=== PATIENT | female | born 1955 | race Two or more races ===

== ENCOUNTER 2020-06-06 06:59 | Outpatient (REF) | payer OTHER, SELFPAY | END 2020-06-06 07:00 | disposition home or self-care (01) | LOC: HO.LAB 06:59 | PROVIDERS: PCP Internal Medicine; Visit Provider Internal Medicine | DX: Z20.828 Contact with and (suspected) exposure to other viral communicable diseases (principal) | CPT/HCPCS: C9803; U0003 ==

== ENCOUNTER 2020-07-10 16:01 | Outpatient (REF) | payer OTHER, SELFPAY ==
--- NOTE | 2020-07-10 | MM_ITS ---
EXAMINATION: MM SCREENING DIGITAL BREAST TOMOSYNTHESIS, BILATERAL CLINICAL INFORMATION: Screening. Asymptomatic. The lifetime risk of breast cancer based on the Tyrer-Cuzick Model is 4%. COMPARISON: Mammography: 03/08/2019 (baseline). TECHNIQUE: Digital breast tomosynthesis is performed in both the craniocaudal and mediolateral oblique views along with computer-aided detection (CAD). Synthesized 2D images are generated from the tomosynthesis. FINDINGS: There are scattered areas of fibroglandular density (ACR BI-RADS breast composition Category b). Parenchymal pattern is similar to prior studies. Scattered parenchymal densities and benign round and coarse calcifications are similar to the baseline study. There is no interval mass or architectural abnormality or abnormal calcifications. The axilla and skin contours are unremarkable. MM/MM tomosynthesis screening BI IMPRESSION: No mammographic evidence of malignancy. ASSESSMENT: BI-RADS 2: Benign RECOMMENDATION: Routine annual mammography screening. This patient's information was entered into a reminder system with a target due date for their next mammogram.
== END 2020-07-10 16:02 | disposition home or self-care (01) ==
LOC: HO.MAMMO 16:01
PROVIDERS: PCP Internal Medicine; Visit Provider Internal Medicine
DX: Z12.31 Encounter for screening mammogram for malignant neoplasm of breast (principal)
CPT/HCPCS: 77063; 77067

== ENCOUNTER 2020-09-27 16:00 | Outpatient (REF) | payer OTHER, SELFPAY ==
[2020-09-27 18:04] LABS: Thyroid Stimulating Hormone 0.95 uIU/mL (0.32-4.0); Vitamin D 25-OH Total 49.9 ng/mL (>30)
== END 2020-09-27 16:01 | disposition home or self-care (01) ==
LOC: HO.LAB 16:00
PROVIDERS: PCP Internal Medicine; Visit Provider Internal Medicine
DX: E04.2 Nontoxic multinodular goiter (principal); I10 Essential (primary) hypertension; E55.9 Vitamin D deficiency, unspecified; Z79.899 Other long term (current) drug therapy
CPT/HCPCS: 36415; 82306; 84439; 84443

== ENCOUNTER 2020-10-25 15:37 | Outpatient (REF) | payer OTHER, SELFPAY ==
--- NOTE | ~2020-10-25 | US_ITS ---
EXAMINATION: US THYROID CLINICAL INFORMATION: Nontoxic multinodular goiter. COMPARISON: Ultrasound soft tissue head/neck thyroid dated 11/18/2018 TECHNIQUE: Linear transducer barr-scale and color Doppler examination with attention to the region of the thyroid. FINDINGS: SIZE: Measurements of the thyroid lobes and nodules are given in sagittal, anteroposterior and transverse dimensions respectively. Right Thyroid Lobe: 4.4 x 1.8 x 1.3 cm, volume 5.4 mL. Previously 4.2 x 1.4 x 1.3 cm, volume 4.1 mL. Parenchyma: The gland echotexture is homogeneous. Thyroid vascularity is normal. Left Thyroid Lobe: 4.1 x 1.5 x 1.4 cm, volume 4.5 mL. Previously 4.4 x 1.5 x 1.3 cm, volume 4.5 mL. Parenchyma: The gland echotexture is homogeneous. Thyroid vascularity is normal. Isthmus: 0.2 cm in maximum AP dimension. Previously 0.3 cm. No focal thyroid nodule is seen. There are several anechoic cysts seen. NODES: No lymphadenopathy is seen in the tissue surrounding the thyroid gland. US/US thyroid IMPRESSION: Several anechoic cysts seen. No solid nodule noted. The thyroid gland is unremarkable. ACR TI-RADS RECOMMENDATION REFERENCE: Ultrasound-guided fine-needle aspiration, followup ultrasound, no further followup. * TR1 (0 point) and TR 2 (2 points): No FNA or followup. * TR3 (3 points): FNA if more than or equal to 2.5 cm in maximum dimension, followup ultrasound in 1, 3 and 5 years if 1.5 to 2.4 cm in maximum dimension. * TR4 (4-6 points): FNA if more than or equal to 1.5 cm in maximum dimension, followup ultrasound in 1, 2, 3 and 5 years if 1 to 1.4 cm in maximum dimension. * TR5 (more than or equal to 7 points): FNA if more than or equal to 1 cm in maximum dimension, followup ultrasound every year for 5 years if 0.5 to 0.9 cm in maximum dimension. * TR3, TR4 or TR5 nodules that are below the size threshold for followup receive no followup.
== END 2020-10-25 15:38 | disposition home or self-care (01) ==
LOC: HO.US 15:37
PROVIDERS: Visit Provider Internal Medicine
DX: E04.2 Nontoxic multinodular goiter (principal)
CPT/HCPCS: 76536

== ENCOUNTER → 2021-01-09 08:12 | Outpatient (BNVA) | payer OTHER, SELFPAY | PROVIDERS: Visit Provider Internal Medicine ==

== ENCOUNTER 2021-10-11 15:36 | Outpatient (REF) | payer OTHER, SELFPAY ==
--- NOTE | ~2021-10-11 | MM_ITS ---
EXAMINATION: MM SCREENING DIGITAL BREAST TOMOSYNTHESIS, BILATERAL CLINICAL INFORMATION: Screening. Asymptomatic. The lifetime risk of breast cancer based on the Tyrer-Cuzick Model is 6%. COMPARISON: Mammography: 07/10/2020, 03/08/2019 (baseline) TECHNIQUE: Digital breast tomosynthesis is performed in both the craniocaudal and mediolateral oblique views along with computer-aided detection (CAD). Synthesized 2D images are generated from the tomosynthesis. FINDINGS: There are scattered areas of fibroglandular density (ACR BI-RADS breast composition Category b). There are no significant masses, abnormal calcifications, or other abnormalities. Parenchymal pattern is similar to prior studies. The axilla and skin contours are unremarkable. No significant changes. MM/MM tomosynthesis screening BI IMPRESSION: No mammographic evidence of malignancy. ASSESSMENT: BI-RADS 2: Benign RECOMMENDATION: Routine annual mammography screening. This patient's information was entered into a reminder system with a target due date for their next mammogram.
== END 2021-10-11 15:37 | disposition home or self-care (01) ==
LOC: HO.MAMMO 15:36
PROVIDERS: PCP Internal Medicine; Visit Provider Internal Medicine
DX: Z12.31 Encounter for screening mammogram for malignant neoplasm of breast (principal)
CPT/HCPCS: 77063; 77067

== ENCOUNTER 2022-11-12 15:40 | Outpatient (REF) | payer OTHER, SELFPAY ==
--- NOTE | ~2022-11-12 | MM_ITS ---
EXAMINATION: MM SCREENING DIGITAL BREAST TOMOSYNTHESIS, BILATERAL CLINICAL INFORMATION: Screening. Asymptomatic. The lifetime risk of breast cancer based on the Tyrer-Cuzick Model is 6%. COMPARISON: Mammography: 10/11/2021, 07/10/2020, 03/08/2019 TECHNIQUE: Digital breast tomosynthesis is performed in both the craniocaudal and mediolateral oblique views along with computer-aided detection (CAD). Synthesized 2D images are generated from the tomosynthesis. FINDINGS: There are scattered areas of fibroglandular density (ACR BI-RADS breast composition Category b). There are no significant masses, abnormal calcifications, or other abnormalities. Parenchymal pattern is similar to prior studies. There is no developing density or architectural abnormality. Again, there is a bulky benign calcified nodule central 9:00 right breast mid duct consistent with degenerated fibroadenoma. There are other scattered benign round and dermal calcifications. The axilla and skin contours are unremarkable. No significant changes. MM/MM tomosynthesis screening BI IMPRESSION: No mammographic evidence of malignancy. ASSESSMENT: BI-RADS 2: Benign RECOMMENDATION: Routine annual mammography screening. This patient's information was entered into a reminder system with a target due date for their next mammogram.
== END 2022-11-12 15:41 | disposition home or self-care (01) ==
LOC: HO.MAMMO 15:40
PROVIDERS: PCP Internal Medicine; Visit Provider Internal Medicine
DX: Z12.31 Encounter for screening mammogram for malignant neoplasm of breast (principal)
CPT/HCPCS: 77063; 77067

== ENCOUNTER 2022-12-29 19:35 | Outpatient (REF) | payer OTHER, SELFPAY | END 2022-12-29 19:36 | disposition home or self-care (01) | LOC: HO.HHCLNP 19:35 | PROVIDERS: Visit Provider Internal Medicine | DX: U07.1 COVID-19 (principal) | CPT/HCPCS: 87070; 87205 ==

== ENCOUNTER 2023-03-20 08:13 | Outpatient (REF) | payer OTHER, SELFPAY | END 2023-03-20 08:14 | disposition home or self-care (01) | LOC: HO.HHCL 08:13 | PROVIDERS: Visit Provider Internal Medicine | DX: I10 Essential (primary) hypertension (principal) | CPT/HCPCS: 36415; 80048 ==

== ENCOUNTER 2023-07-06 08:15 | Outpatient (REF) | payer OTHER, SELFPAY ==
[2023-07-06 11:43] LABS: Basophils Percent Auto 0.9 % (0-2); Eosinophils Absolute Auto 0.1 X10*3/uL (0.0-0.4); Eosinophils Percent Auto 2.3 % (0-4); Hematocrit 38.6 % (37.0-47.0); Hemoglobin 12.7 g/dl (12.0-16.0); Lymphocytes Absolute Auto 2.8 X10*3/uL (1.2-4.9); Lymphocytes Percent Auto 63.5 % (20-40); MANUAL DIFF FLAG SCAN; Mean Corpuscular HGB Conc 32.9 g/dl (31.0-35.0); Mean Corpuscular Hemoglobin 26.9 pg (27.0-33.0); Mean Corpuscular Volume 81.8 fL (80.0-98.0); Mean Platelet Volume 9.7 fL (9.4-12.3); Monocytes Absolute Auto 0.4 X10*3/uL (0.1-1.2); Monocytes Percent Auto 9.6 % (2-11); Neutrophils Percent Auto 23.7 % (45-73); Platelet Count 266 X10*3/uL (160-400); Red Blood Count 4.72 X10*6/uL (4.20-5.50); Red Cell Distribution Width 12.9 % (11.0-16.0); SCAN SMEAR FLAG 1; White Blood Count 4.4 X10*3/uL (4.8-10.8)
[2023-07-06 11:52] LABS: Estimated Average Glucose 108 mg/dL; Hemoglobin A1c % 5.4 % (<6.0)
[2023-07-06 12:11] LABS: Alanine Aminotransferase 22 U/L (0-31); Albumin Level 4.1 g/dL (3.5-5.0); Alkaline Phosphatase 112 U/L (39-117); Anion Gap 12 (12-20); Aspartate Amino Transferase 24 U/L (5-31); Bilirubin Direct 0.2 mg/dL (0.0-0.5); Bilirubin Total 0.5 mg/dL (0.0-1.0); Blood Urea Nitrogen 17 mg/dL (9-16); Calcium 9.7 mg/dL (8.4-10.2); Carbon Dioxide 28 mmol/L (22-29); Chloride 107 mmol/L (96-108); Cholesterol 117 mg/dL (<200); Estimated Glomerular Filt Rate 58; Glucose Random 92 mg/dL (60-115); HDL Cholesterol 44 mg/dL (>40); LDL Cholesterol Calculated 58 mg/dL (<100); Potassium 4.6 mmol/L (3.3-5.1); Sodium 142 mmol/L (135-145); Triglycerides 79 mg/dL (<150)
[2023-07-06 12:47] LABS: SLIDE REVIEW VERIFIED
== END 2023-07-06 08:16 | disposition home or self-care (01) ==
LOC: HO.HHCL 08:15
PROVIDERS: Visit Provider Internal Medicine
DX: R73.03 Prediabetes (principal); I10 Essential (primary) hypertension
CPT/HCPCS: 36415; 80048; 80061; 80076; 83036; 85025

== ENCOUNTER 2023-12-28 08:17 | Outpatient (REF) | payer OTHER, SELFPAY ==
[2023-12-28 11:55] LABS: Anion Gap 13 (12-20); Blood Urea Nitrogen 14 mg/dL (9-16); Calcium 9.9 mg/dL (8.4-10.2); Carbon Dioxide 27 mmol/L (22-29); Chloride 108 mmol/L (96-108); Estimated Glomerular Filt Rate 51; Glucose Random 92 mg/dL (60-115); Potassium 4.8 mmol/L (3.3-5.1); Sodium 143 mmol/L (135-145)
== END 2023-12-28 08:18 | disposition home or self-care (01) ==
LOC: HO.CHCLDS 08:17
PROVIDERS: Visit Provider Internal Medicine
DX: I10 Essential (primary) hypertension (principal)
CPT/HCPCS: 36415; 80048

== ENCOUNTER 2024-01-11 15:07 | Outpatient (REF) | payer OTHER, SELFPAY ==
--- NOTE | ~2024-01-11 | MM_ITS ---
EXAMINATION: MM SCREENING DIGITAL BREAST TOMOSYNTHESIS, BILATERAL CLINICAL INFORMATION: Screening. Asymptomatic. COMPARISON: Mammography: This study is compared with prior exams dating back to 2020. TECHNIQUE: Digital breast tomosynthesis is performed in both the craniocaudal and mediolateral oblique views along with computer-aided detection (CAD). Synthesized 2D images are generated from the tomosynthesis. FINDINGS: There are scattered areas of fibroglandular density (ACR BI-RADS breast composition Category b). There are no significant masses, abnormal calcifications, or other abnormalities. There is a coarse benign calcification upper outer quadrant of the right breast technology sales representative of an involuting fibroadenoma. MM/MM tomosynthesis screening BI IMPRESSION: No mammographic evidence of malignancy. ASSESSMENT: BI-RADS BI-RADS 2 - Benign Findings RECOMMENDATION: Routine annual mammography screening. 1 year F/U This examination should not preclude the clinical evaluation of a suspicious palpable abnormality. This patient's information was entered into a reminder system with a target due date for their next mammogram.
== END 2024-01-11 15:08 | disposition home or self-care (01) ==
LOC: HO.MAMMO 15:07
PROVIDERS: PCP Internal Medicine; Visit Provider Internal Medicine
DX: Z12.31 Encounter for screening mammogram for malignant neoplasm of breast (principal)
CPT/HCPCS: 77063; 77067

== ENCOUNTER → 2024-01-11 15:15 | Outpatient (BNV) | payer OTHER, SELFPAY | PROVIDERS: PCP Internal Medicine; Visit Provider Radiology Diagnostic Radiology | DX: Z12.31 Encounter for screening mammogram for malignant neoplasm of breast (principal) | CPT/HCPCS: 77063; 77067 ==

== ENCOUNTER 2024-04-04 16:11 | Outpatient (REF) | payer OTHER, SELFPAY ==
[2024-04-04 17:31] LABS: Appearance Urine Clear; Color Urine Yellow; Glucose Urine UA Negative (Negative); Leukocyte Esterase Urine Large (3+) (Negative); Nitrite Urine Negative (Negative); UMIC TRIGGER UA YES; Urine Blood Negative (Negative); Urine Ketones Negative (Negative); Urine Protein Negative (Neg-Trace)
[2024-04-04 17:35] LABS: Bacteria Urine 1+ (None Seen); Hyaline Casts Urine 0-2 /LPF (0-2); RBC Urine 0-2 /HPF (0-2); WBC Urine 21-50 /HPF (0-5)
[2024-04-04 18:03] LABS: Creatinine Urine 74.53 mg/dL; Protein/Creatinine Ratio, Ur 0.11 (<0.2); Total Protein Urine Random 8 mg/dL (<12)
== END 2024-04-04 16:12 | disposition home or self-care (01) ==
LOC: HO.HHCLNP 16:11
PROVIDERS: Visit Provider Internal Medicine Nephrology
DX: Z13.89 Encounter for screening for other disorder (principal)
CPT/HCPCS: 81001; 82570; 84156

== ENCOUNTER 2024-10-13 08:16 | Outpatient (REF) | payer OTHER, SELFPAY ==
--- OUTSIDE RECORDS SUMMARY | 2024-10-13 08:28 | XMS_ITS | Clinical Summary ---
Author Organization [employer] Address [address] [facility] 7[address] [place] [address] Care Team Providers Care [employer] Leak Tester Name Role Phone Nubia Gay MD Primary Care Provide r Allergies No known active allergies Medications fluticasone (Flonase Allergy Relief) 50 MCG/ACT nasal sprayIndications :Allergic sinusitis Administer 1 spray into each nostril in the morning. Shake gently. Before first use, prime pump. After use, clean tip and replace cap. 16 g 12 3 Active albuterol 108 (90 Base) MCG/ACT inhalerIndicatio ns:Influenza-lik e symptoms INHALE 2 PUFFS BY MOUTH EVERY 4 HOURS NEEDED FOR WHEEZING OR SHORTNESS OF BREATH 18 g 1 3 Active Blood Glucose Monitoring Suppl (FreeStyle Lite) deviceIndication s:Prediabetes TEST BLOOD SUGAR TWICE DAILY 1 each 3 Active glucose blood (FREESTYLE LITE) test strip TEST BLOOD SUGAR TWICE DAILY 100 each 11 3 Active TRUEplus Lancets 33G misc TEST BLOOD SUGAR TWICE DAILY 100 each 11 3 Active meclizine (Antivert) 12.5 MG tabletIndication s:Hypertension, unspecified type TAKE 1 TABLET BY MOUTH THREE TIMES DAILY NEEDED FOR DIZZINESS OR FOR NAUSEA 30 tablet 4 Active acetaminophen (Tylenol) 500 MG tablet Take 2 tablets (1,000 mg) by mouth every 6 (six) hours if needed for moderate pain or fever for up to 25 doses. 50 tablet 4 Active albuterol (2.5 MG/3ML) 0.083% nebulizer solutionIndicati ons:Mild intermittent asthma with acute exacerbation inhale 3 milliliter by nebulization route 4 times every day prn 75 mL 3 4 Active amLODIPine (Norvasc) 2.5 MG tabletIndication s:Hypertension, unspecified type Take 1 tablet (2.5 mg) by mouth in the morning. 90 tablet 1 4 Active atorvastatin (Lipitor) 20 MG tabletIndication s:Primary hypertension Take 1 tablet (20 mg) by mouth Once per day. 30 tablet 11 4 025 Active losartan (Cozaar) 25 MG tabletIndication s:Hypertension, unspecified type TAKE 1 TABLET BY MOUTH EVERY DAY 90 tablet 1 5 Active Active Problems Problem Noted Date Diagnosed Date Colon cancer screening 07/10/2023 Prediabetes 04/06/2023 Assessment & Plan (07/10/2023 10:15 AM EST): Today extensive discussion was done about life style modifications I advise healthy diet (low calorie) and cardiovascular exercise Assessment & Plan (04/06/2023 3:20 PM EDT): Today extensive discussion was done about life style modifications I advise healthy diet (low calorie) and cardiovascular exercise Stage 2 chronic kidney disease 04/06/2023 Assessment & Plan (04/06/2023 3:23 PM EDT): I explain to patient her kidney function is only mildly reduce and to protect her kidney she is doing the right things, weight reduction, blood pressure control, low Na diet, avoid NSAIDs and nephrotoxic medications, drink plenty of water and go to nephrology appointment for check up COVID-19 12/29/2022 Assessment & Plan (12/29/2022 12:08 PM EDT): Today is her 4th day of sxs and are currently very mild and improving. She had 1 booster. No need for antiviral PO at this time, re consult prn if she develops fever or worsening of sxs again. Self-care measures: Rest (sleep at least 8 hours a night). Hydrate with plenty of water (avoid caffeine and alcohol). Use saline nose drops to loosen mucus Take Acetaminophen (Tylenol??)or Ibuprofen as needed to reduce fever or discomfort Gargle with salt water and use throat sprays/lozenges for throat pain. Use heated, humidified air. If you do not have a humidifier, take hot showers. Limit spread to others: Wash hands frequently. Cover coughs and sneezes using the crook of your elbow. If you have a fever, stay home and away from others (self isolation) until fever-free for 72 hours (temperature should be less than 100??F without medication). Use Flonase daily x 1w + Tylenol prn fever, malaise, FIELDS Out of work until tomorrow, can go back on 12/31 if asymptomatic + wear a face mask for 5 more days, otherwise, will have to wait To complete 10d. Primary hypertension 11/03/2022 Assessment & Plan (01/07/2024 4:39 PM EDT): Maintenance: BMP: up to date Lipid Panel: up to date ASCVD Risk: high risk patient on atorvastatin 20mg daily - Aerobic exercise to reduce BP. Initial goal of 30 min walk 3-5x/week. Increase as tolerated. - low-sodium diet (goal: <2g/day) and heart healthy diet such as DASH to reduce BP and prevent ASCVD. - Home BP monitoring 1-2 x day with goal of <140/90. - Seek immediate medical attention for chest pain, palpitations, SOB, syncope, or sudden changes in mental status. - Do not change or discontinue current prescriptions without first consulting health care provider Assessment & Plan (07/10/2023 10:15 AM EST): Maintenance: BMP: up to date Lipid Panel: up to date ASCVD Risk:on atorvastatin 20mg daily - Aerobic exercise to reduce BP. Initial goal of 30 min walk 3-5x/week. Increase as tolerated. - low-sodium diet (goal: <2g/day) and heart healthy diet such as DASH to reduce BP and prevent ASCVD. - Home BP monitoring 1-2 x day with goal of <140/90. - Seek immediate medical attention for chest pain, palpitations, SOB, syncope, or sudden changes in mental status. - Do not change or discontinue current prescriptions without first consulting health care provider Assessment & Plan (04/06/2023 3:20 PM EDT): - Aerobic exercise to reduce BP. Initial goal of 30 min walk 3-5x/week. Increase as tolerated. - low-sodium diet (goal: <2g/day) and heart healthy diet such as DASH to reduce BP and prevent ASCVD. - Home BP monitoring 1-2 x day with goal of <140/90. - Seek immediate medical attention for chest pain, palpitations, SOB, syncope, or sudden changes in mental status. - Do not change or discontinue current prescriptions without first consulting health care provider Assessment & Plan (11/03/2022 4:38 PM EDT): - Aerobic exercise to reduce BP. Initial goal of 30 min walk 3-5x/week. Increase as tolerated. - low-sodium diet (goal: <2g/day) and heart healthy diet such as DASH to reduce BP and prevent ASCVD. - Home BP monitoring 1-2 x day with goal of <140/90. - Seek immediate medical attention for chest pain, palpitations, SOB, syncope, or sudden changes in mental status. - Do not change or discontinue current prescriptions without first consulting health care provider BPPV (benign paroxysmal positional vertigo) 10/14 Mild intermittent asthma 06/27/2022 Assessment & Plan (04/06/2023 3:19 PM EDT): Refill for albuterol done Assessment & Plan (12/29/2022 12:05 PM EDT): Improving, Use albuterol with spacer q4h x 2d then prn. Re consult prn if sxs worsen Assessment & Plan (11/03/2022 4:39 PM EDT): Controlled continue with current interventions Immunizations Name Administration Dates Next Due Influenza Quadrivalent Adjuvanted 03/03/2021,08/2019 Influenza injectable quadriv alent preservative free 07/10/2023,03/22/2018 Moderna Covid-19 Vaccine 12+ 12/10/2021,09/19/19 21,08/21/2020 Pneumococcal Conjugate PCV 20 11/03/2022 Pneumococcal Polysaccharide PPSV23 08/11/2019 Social History Tobacco Use Types Packs/Day Years Used Date Smoking Tobacco: Never Passive Smoke Exposure: Never Smokeless Tobacco: Never Tobacco Cessation:Counseling Given: Not Answered Depression Answer Date Recorded Patient Health Questionnaire-9 Score 0 01/07/2024 Patient Health Questionnaire-9 Score 0 01/07/2024 Last PHQ-9: Questionnaire Data Not on file 0 01/07/2024 Housing Stability Answer Date Recorded What is your housing situation today? I have roseline reich 01/07/[address] you li ve. Do you have problems with any of the following? None of the above 01/07/2024 Food Insecurity Answer Date Recorded Within the past 12 months, y ou worried that your food would run out before you got money to buy more: Never True 01/07/2024 Within the past 12 months,th e food you bought just didn't last and you didn't have enough money to get more: Never True Transportation Answer Date Recorded In the past 12 months, has l ack of transportation kept you from medical appts, meetings, work or from getting things needed for daily living? No 01/07/2024 Utilities Answer Date Recorded In the past 12 months, has t he electric, gas, oil or water company threatened to shut off services in your home? No 01/07/2024 Depression Answer Date Recorded Patient Health Questionnaire-2 Score 0 01/07/2024 Internet Access Answer Date Recorded Internet Access Q1 No 02/15/2024 Internet Access Q2 I do not want or need it 07/2023 Comments Unknown Sex and Gender Information Value Date Recorded Sex Assigned at Female 04/14/2022 10:35 AM EDT Legal Sex Female 10:35 AM EDT Gender Identity Female 04/14/2022 10:35 AM EDT Sexual Orientation Straight 04/14/2022 10 :35 AM EDT Last Filed Vital Signs Vital Sign Reading Time Taken Comments Blood Pressure 152/82 01/07/2024 3:31 PM EDT Pulse 67 01/07/2024 3:13 PM EDT Temperature 36.1 ??C (97 ??F) 01/07/2024 3:13 PM EDT Respiratory Rate 18 01/07/2024 3:13 PM EDT Oxygen Saturation 100% 01/07/2024 3:13 PM EDT Inhaled Oxygen Concentration - - Weight 74.1 kg (163 lb 6.4 oz) 01/07/2024 3:13 P M EDT Height 172.7 cm (5' 8 ) 01/07/2024 3:13 PM EDT Body Mass Index 24.84 01/07/2024 3:13 PM EDT Plan of Treatment Health Maintenance Due Date Last Done Comments CT Colonography 1954 Colonoscopy 1954 FIT 1954 FOBT 1954 Sigmoidoscopy 1954 Alcohol/Substance Use Screening 1966 Hepatitis C Screening 1972 DTaP/Tdap/Td Vaccines (1 - Tdap) 1973 Zoster Vaccines (1 of 2) 2004 RSV Patients and Patients Aged 60 years or older (1 - Risk 60-74 years 1-dose series) 2014 COVID-19 Vaccine ( - season) 2024 12/10/2021, 09/18/2020, 08/21/2020 Influenza Vaccine (#1) 2024 , 03/03/2021, 03/17/2020, Additional history exists Diabetes: Hemoglobin A1C 07/06/2024 024, 11/17/2022, 12/10/2021 Depression Screening 01/06/2025 01/07/2024, 01/07/20 24 SDOH Screening 01/06/2025 01/07/2024 Tobacco Screening 01/06/2025 01/07/2024 Mammogram 01/10/2025 01/11/2024, 05/3 06/2022, 11/12/2022, Additional history exists Colorectal Cancer Screening 11/25/2025 FIT DNA/Cologuard 11/25/2025 11/25/2022 Lipid Panel 07/06/2028 07/06/2023, 06/0 10/2022, 12/10/2021, Additional history exists Pneumococcal Vaccine: 50+ Years Completed 11/03/2022, 08/11/2019 HIB Vaccines Aged Out No longer eligi ble based on patient's age to complete this topic HPV Vaccines Aged Out No longer eligi ble based on patient's age to complete this topic Hepatitis A Vaccines Aged Out No long er eligible based on patient's age to complete this topic Hepatitis B Vaccines Aged Out No long er eligible based on patient's age to complete this topic IPV Vaccines Aged Out No longer eligi ble based on patient's age to complete this topic Meningococcal Vaccine Aged Out No janet belkys eligible based on patient's age to complete this topic RSV under 20 months Aged Out No longe r eligible based on patient's age to complete this topic Rotavirus Vaccines Aged Out No longer eligible based on patient's age to complete this topic Procedures Procedure Name Priority Date/Time Associated Diagnosis Comments BI MAMMOGRAM SCREENING TOMOSYNTHESIS BILATERAL Routine 01/11/2024 3:50 PM EDT HEMOGLOBIN A1C Routine 07/06/2023 8:18 AM EST Prediabetes Hypertension, unspecified type LIPID PANEL, STANDARD Routine 07/06/2023 8:18 AM EST Prediabetes Hypertension, unspecified type from Last 3 Months or Most Recently Relevant to Health Maintenance Results * BI Mammogram Screening Tomosynthesis Bilateral (01/11/2024 3:50 PM EDT) Anatomical Region Laterality Modality Breast Bilateral Mammography 01/11/2024 3:50 PM EDT Narrative 01/26/2024 9:39 PM EDT ? [facility] ? [address] ?[place] [address] ? Mammography Report ? Signed ? Patient: Mccann,Sonali ?MR#: [id number] ?? [id number] ? : 1955 ?Acct:[id number] ? Age/Sex: 68 / F ?ADM Date: 07/29/24 ? Loc: HO.MAMMO ? Attending Dr: Nubia Fuentes MD ? Ordering Physician: Nubia Gay MD ?Results: ?? 2Benign Findings ? Date of Service: 01/11/24 ?Follow Up: 1 Year From Orig ?? inal Mammogram ? Procedure(s): MM tomosynthesis screening BI ?? Accession Number(s): [id number] ? cc: Nubia Gay MD ? EXAMINATION: ?? MM SCREENING DIGITAL BREAST TOMOSYNTHESIS, BILATERAL ? CLINICAL INFORMATION: ? Screening. Asymptomatic. ? COMPARISON: ?? Mammography: This study is compared with prior exams dating back to ?? 2020. ? TECHNIQUE: ?? Digital breast tomosynthesis is performed in both the craniocaudal and ?? mediolateral oblique views along with computer-aided detection (CAD). ?? Synthesized 2D images are generated from the tomosynthesis. ? FINDINGS: ?? There are scattered areas of fibroglandular density (ACR BI-RADS breast ?? composition Category b). ? There are no significant masses, abnormal calcifications, or other ?? abnormalities. ? There is a coarse benign calcification upper outer quadrant of the ?? right breast business banking representative of an involuting fibroadenoma. ? MM/MM tomosynthesis screening BI ?? IMPRESSION: ?? No mammographic evidence of malignancy. ? ASSESSMENT: ? BI-RADS BI-RADS 2 - Benign Findings ? RECOMMENDATION: ?? Routine annual mammography screening. ? 1 year F/U ? This examination should not preclude the clinical evaluation of a ?? suspicious palpable abnormality. ? This patient's information was entered into a reminder system with a ?? target due date for their next mammogram. ? Dictated By: ?Alexa Buckley MD ? Signed By: ?<Electronically signed by Alexa Buckley MD in OV> ? 01/26/242134 ? DD/ 1550 ? TD/TT: ? Wire Frame Dipper: ? Procedure Note Donotuseinterpreter, Image - 01/26/2024 [facility] [address] [place] [address] Mammography Report Signed Patient: Sonali MccannMR#: [id number] : 1955cct:[id number] Age/Sex: 68 / FADM Date: 01/11/24 Loc: HO.MAMMO Attending Dr: Nubia Fuentes MD Ordering Physician: Nubia Gay MDResults: 2Benign Findings Date of Service: 01/11/24Follow Up: 1 Year From Orig inal Mammogram Procedure(s): MM tomosynthesis screening BI Accession Number(s): [id number] cc: Nubia Gay MD EXAMINATION: MM SCREENING DIGITAL BREAST TOMOSYNTHESIS, BILATERAL CLINICAL INFORMATION: Screening. Asymptomatic. COMPARISON: Mammography: This study is compared with prior exams dating back to 2020. TECHNIQUE: Digital breast tomosynthesis is performed in both the craniocaudal and mediolateral oblique views along with computer-aided detection (CAD). Synthesized 2D images are generated from the tomosynthesis. FINDINGS: There are scattered areas of fibroglandular density (ACR BI-RADS breast composition Category b). There are no significant masses, abnormal calcifications, or other abnormalities. There is a coarse benign calcification upper outer quadrant of the right breast business banking representative of an involuting fibroadenoma. MM/MM tomosynthesis screening BI IMPRESSION: No mammographic evidence of malignancy. ASSESSMENT: BI-RADS BI-RADS 2 - Benign Findings RECOMMENDATION: Routine annual mammography screening. 1 year F/U This examination should not preclude the clinical evaluation of a suspicious palpable abnormality. This patient's information was entered into a reminder system with a target due date for their next mammogram. Dictated By: Alexa Buckley MD Signed By: <Electronically signed by Alexa Buckley MD in OV> 01/26/24 2135 DD/ 1550 TD/TT: Wire Frame Dipper: us Nubia Fuentes MD IMG BI PROCEDURES Jon latonia Result - Final * Hemoglobin A1c (07/06/2023 8:18 AM EST) Hemoglobin A1c 5.4 <6.0 % [facility] Comment:Hemoglobin A1C Refer ence Range Adults: 4.8 - 6.0 % Non diabetic: < 6.0 % Goal: < 7.0 %Additional Action Suggested: > 8.0 %Note: Hemoglobin A1c results are invalid for patients with abnormal amounts of HbF. Blood transfusions may impact the HbA1c concentration in the patient sample. Estimated Average Glucose 108 mg/dL [facility] Comment:eAG = Estimated ave rage glucose which is %A1C expressed asaverage glucose, using the formula of the [id number] Glucose study (ADAG), Diabetes Care, Vol.31,#8,Jan. 2007 Blood Venous blood specimen / Unknown 07/06/2023 8:18 AM EST 07/06/2023 11:09 AM EST us Nubia Fuentes MD LAB BLOOD ORDERABLES Final Result [facility] [address] [place], [place] [id number] [phone] * Lipid Panel, Standard (07/06/2023 8:18 AM EST) Triglycerides 79 <150 mg/dL [facility] Comment:Desirable Triglyceri de: less than 150 mg/dLBorderline High Triglyceride 150-199 mg/dLHigh Triglyceride: 200-499 mg/dLVery High Triglyceride: greater than or equal to 5OO mg/dL Cholesterol 117 <200 mg/dL [facility] Comment:Desirable Cholestero l: less than 200 mg/dLBorderline High Cholesterol: 200-239 mg/dLHigh Cholesterol: greater than 239 mg/dL LDL Cholesterol Calculated 58 <100 mg/dL [facility] Comment:Desirable LDL: less than 100 mg/dLNear Optimal/Above Optimal LDL: 110- 129 mg/dLBorderline High LDL: 130-159 mg/dLHigh LDL: 160-189 mg/dLVery High LDL: greater than or equal to 190 mg/dL HDL Cholesterol 44 >40 mg/dL [facility] Comment:Desirable HDL: great er than 40 mg/dL Note: This HDL assay may give artificially low results in patients with liver disease. Blood Venous blood specimen / Unknown 07/06/2023 8:18 AM EST 07/06/2023 11:38 AM EST Nubia Fuentes MD LAB BLOOD ORDERABLES Final Result [facility] [address] [place] [address] [phone] from Last 3 Months or Most Recently Relevant to Health Maintenance Insurance Care Teams [employer] Leak Tester Relationship Specialty Start Date End Date Nubia Gay MD [address] [place] [address] PCP - General Family Medicine 11/04/18
--- OUTSIDE RECORDS SUMMARY | 2024-10-13 08:28 | XMS_ITS | Encounter Summary ---
Author Organization [facility] Address [address] [facility] [address] [place] [address] Phone Care Team Providers Care Equal Opportunity Director Name Role Phone Nubia Gay MD Primary Care Provide r Encounter Details Date Type Department Care Team (Late st Contact Info) Description 01/12/2024 Office Communication [facility] [address] [facility] [address] [place] [address] Jonathan Mcgrath MD [address] [facility] [address] [place] [address] Social History Tobacco Use Types Packs/Day Years Used Date Smoking Tobacco: Never Smokeless Tobacco: Never Alcohol Use Standard Drinks/Week Comments Never 0 (1 standard drink = 0.6 oz pur e alcohol) Comments Unknown Sex and Gender Information Value Date Recorded Sex Assigned at Not on file Legal Sex Female 10:56 AM EDT Gender Identity Not on file Sexual Orientation Not on file documented as of this encounter Miscellaneous Notes * Telephone Encounter - Jonathan Mcgrath MD - 01/12/2024 3:19 AM EDT Pls schedule 24 hr ABPM and f/u--ok to schedule with Jenn documented in this encounter Plan of Treatment Upcoming Encounters Date Type Department Care Team (Late st Contact Info) Description 10/17/2024 [facility] Only [facility] [address] [facility] [address] [place] [address] Mike Montejo MD [address] [phone] Stage 3a chronic kidney disease (HCC) 10/17/2024 10:30 AM EDT Office Visit [facility] [address] [place] [phone] Mike Montejo MD [facility] [address] [phone] documented as of this encounter Visit Diagnoses Not on filedocumented in this encounter Care Teams Equal Opportunity Director Relationship Specialty Start Date End Date Nubia Gay MD [address] [place] [phone] PCP - General Internal Medicine 04/19/24 documented as of this encounter
--- OUTSIDE RECORDS SUMMARY | 2024-10-13 08:28 | XMS_ITS | Clinical Summary ---
Author Organization [facility] Address [address] [phone] Phone Care Team Providers Care Ent Surgeon Name Role Phone Nubia Gay MD Primary Care Provide r Allergies No known active allergies Medications losartan (COZAAR) 25 MG tablet Take 1 tablet by mouth 1 (one) time each day 11/03/2022 Active atorvastatin (LIPITOR) 20 MG tablet Take 20 mg by mouth in the morning. 11/18/2022 Active amLODIPine (NORVASC) 5 MG tabletIndications :Essential (primary) hypertension Take 1 tablet (5 mg total) by mouth in the morning. 30 tablet 11 01/19/2024 01/19/20 25 Active Active Problems Problem Noted Date Diagnosed Date Stage 3a chronic kidney disease 03/31/2023 Chronic kidney disease due to benign hypertensio n 03/31/2023 COVID-19 12/29/2022 03/31/2023 Overview (03/31/2023): Last Assessment & Plan: Today is her 4th day of sxs [...] will have to wait To complete 10d. Essential (primary) hypertension 11/03/2022 03/30/2023 Overview (03/30/2023): Last Assessment & Plan: - Aerobic exercise to reduce BP. Initial [...] prescriptions without first consulting health care provider Benign paroxysmal positional vertigo 11/03/2022 03/30/2023 Mild intermittent asthma 06/27/2022 023 Overview (03/30/2023): Last Assessment & Plan: Controlled continue with current interventions Immunizations Immunization Administration Dates Next Due Influenza Vaccine, Quadrivalent, Adjuvanted 02/13,03/17/2020 Influenza, Quadrivalent, Preservative Free 03/22 Moderna SARS-COV-2 12/10/2021,09/18/2020, 021 Pneumococcal Conjugate Pcv 20 11/03/2022 Pneumococcal Polysaccharide 08/11/2019 Family History Medical History Relation Comments Diabetes Father Hypertension Father Diabetes Mother Hypertension Mother Diabetes Sister Relation Status Comments Father Mother Sister Social History Tobacco Use Types Packs/Day Years Used Date Smoking Tobacco: Never Smokeless Tobacco: Never Tobacco Cessation:Counseling Given: Not Answered Alcohol Use Standard Drinks/Week Comments Never 0 (1 standard drink = 0.6 oz pur e alcohol) Comments Unknown Sex and Gender Information Value Date Recorded Sex Assigned at Not on file Legal Sex Female 10:56 AM EDT Gender Identity Not on file Sexual Orientation Not on file Last Filed Vital Signs Vital Sign Reading Time Taken Comments Blood Pressure 140/84 04/19/2024 4:43 PM EST Pulse 77 04/19/2024 4:43 PM EST Temperature - - Respiratory Rate - - Oxygen Saturation 98% 04/19/2024 4:43 PM EST Inhaled Oxygen Concentration - - Weight 75.5 kg (166 lb 6.4 oz) 04/19/2024 4:43 P M EST Height - - Body Mass Index - - Plan of Treatment Upcoming Encounters Date Type Department Care Team (Late st Contact Info) Description 10/17/2024 Orders Only [facility] [address] [phone] Mike Montejo MD [address] [phone] Stage 3a chronic kidney disease (HCC) 10/17/2024 10:30 AM EDT Office Visit [facility] [address] [phone] Mike Montejo MD [address] [phone] Health Maintenance Due Date Last Done Comments Breast Cancer Screening 1955 Colorectal Cancer Screening: Annual FOBT 2003 Colorectal Cancer Screening: Colonoscopy 2003 Colorectal Cancer Screening: Sigmoidoscopy 2003 Influenza Vaccine (Season Ended) 2025 07/10/2023, 03/03/2021, 03/17/2020, Additional history exists Pneumococcal Vaccine: 50+ Years Completed 11/03/2022, 08/11/2019 Hepatitis B Vaccine Aged Out No longe r eligible based on patient's age to complete this topic Insurance [facility] Medicare Care Teams Ent Surgeon Relationship Specialty Start Date End Date Nubia Gay MD [address] [place] [phone] PCP - General Internal Medicine 04/19/24
[2024-10-13 11:34] LABS: Basophils Percent Auto 1.2 % (0-2); Eosinophils Absolute Auto 0.1 X10*3/uL (0.0-0.4); Eosinophils Percent Auto 2.7 % (0-4); Hematocrit 36.1 % (37.0-47.0); Hemoglobin 12.1 g/dl (12.0-16.0); Imm Gran Abs Auto 0.02 X10*3/uL (0.00-0.03); Imm Gran Pct Auto 0.6 % (0.0-0.4); Lymphocytes Absolute Auto 2.1 X10*3/uL (1.2-4.9); Lymphocytes Percent Auto 61.7 % (20-40); MANUAL DIFF FLAG SCAN; Mean Corpuscular HGB Conc 33.5 g/dl (31.0-35.0); Mean Corpuscular Hemoglobin 27.6 pg (27.0-33.0); Mean Corpuscular Volume 82.4 fL (80.0-98.0); Mean Platelet Volume 9.4 fL (9.4-12.3); Monocytes Absolute Auto 0.4 X10*3/uL (0.1-1.2); Monocytes Percent Auto 10.5 % (2-11); NRBC Pct Auto 0.6 /100WBC (0.0-0.2); Neutrophils Absolute Auto 0.8 x10*3/uL (2.0-8.3); Neutrophils Percent Auto 23.3 % (45-73); Platelet Count 274 X10*3/uL (160-400); Red Blood Count 4.38 X10*6/uL (4.20-5.50); Red Cell Distribution Width 13.3 % (11.0-16.0); SCAN SMEAR FLAG 1; White Blood Count 3.3 X10*3/uL (4.8-10.8)
[2024-10-13 11:39] LABS: Appearance Urine Clear; Color Urine Yellow; Glucose Urine UA Negative (Negative); Leukocyte Esterase Urine Moderate (2+) (Negative); Nitrite Urine Negative (Negative); PH 5.5 (5.0-9.0); UMIC TRIGGER UA YES; Urine Blood Negative (Negative); Urine Ketones Negative (Negative); Urine Protein Negative (Neg-Trace)
[2024-10-13 11:45] LABS: Bacteria Urine None Seen (None Seen); Hyaline Casts Urine 0-2 /LPF (0-2); RBC Urine 0-2 /HPF (0-2); WBC Urine 21-50 /HPF (0-5)
[2024-10-13 11:51] LABS: Estimated Average Glucose 114 mg/dL; Hemoglobin A1C 117.8363 umol/L; Hemoglobin A1c % 5.6 % (<6.0); Total Hemoglobin (HGBA1C) 3156.3643 umol/L
[2024-10-13 11:57] LABS: Anion Gap 12 (12-20); Blood Urea Nitrogen 13 mg/dL (9-16); Calcium 9.4 mg/dL (8.4-10.2); Carbon Dioxide 26 mmol/L (22-29); Chloride 109 mmol/L (96-108); Estimated Glomerular Filt Rate > 60; Glucose Random 89 mg/dL (60-115); Iron 82 mcg/dL (30-160); Percent Iron Saturation 30 % (15-50); Phosphorus 3.3 mg/dL (2.7-4.5); Potassium 4.2 mmol/L (3.3-5.1); Sodium 143 mmol/L (135-145); Total Iron Binding Capacity 276 mcg/dL (228-428); Unsaturated Iron Binding 194 ug/dL; Uric Acid 4.5 mg/dL (2.4-5.7)
[2024-10-13 12:03] LABS: Creatinine Urine 177.29 mg/dL; Microalbum/Creatinine Ratio Ur 6.2 ug/mg cr (<30); Protein/Creatinine Ratio, Ur 0.06 (<0.2); Total Protein Urine Random 10 mg/dL (<12)
[2024-10-13 12:07] LABS: PTH Intact Intraoperative 52.9 pg/mL (8.7-77.1)
[2024-10-13 12:15] LABS: SLIDE REVIEW VERIFIED
[2024-10-13 12:26] LABS: Ferritin 40 ng/mL (10-250)
[2024-11-02 14:26] LABS: Cystatin C 1.24 (H); eGFR (Cystatin C) 52 (L)
[2024-11-02 14:27] LABS: Vit D (1,25-Dihydroxy) Total 37
[2024-11-02 14:28] LABS: VITAMIN D (1,25 OH) D3 37; Vitamin D (1,25 OH) D2 <8
== END 2024-10-13 08:17 | disposition home or self-care (01) ==
LOC: HO.HHCL 08:16
PROVIDERS: Visit Provider Internal Medicine
DX: N18.31 Chronic kidney disease, stage 3a (principal); Z13.1 Encounter for screening for diabetes mellitus; Z13.6 Encounter for screening for cardiovascular disorders
CPT/HCPCS: 36415; 80048; 81001; 82043; 82570; 82610; 82652; 82728; 83036; 83540; 83735; 83970; 84100; 84156; 84550; 85025

== ENCOUNTER 2025-01-16 15:37 | Outpatient (REF) | payer OTHER, SELFPAY ==
--- OUTSIDE RECORDS SUMMARY | 2025-01-16 15:40 | XMS_ITS | Clinical Summary ---
Author Organization [facility]. Address [address] [facility] [address] [place] [address] Phone Care Team Providers Care Lowerator Operator Name Role Phone Nubia Gay MD Primary [...] Active Problems Problem Noted Date Diagnosed Date Prediabetes 04/06/2023 Stage 3a chronic kidney disease 03/31/2023 Chronic [...] nose drops to loosen mucus Take Acetaminophen (Tylenol )or Ibuprofen as needed to reduce fever or [...] 72 hours (temperature should be less than 100 F without medication). Use Flonase daily x 1w [...] & Plan: Controlled continue with current interventions Encounters Date Type Department Care Team Description 10/17/2024 10:30 AM EDT Office Visit [facility] [address] [phone] Mike Montejo MD Stage 3a chronic kidney disease (HCC) (Primary Dx) 10/17/2024 Orders Only [facility] [address] [facility] [address] [place] [phone] Mike Montejo MD Stage 3a chronic kidney disease (HCC) from Last 3 Months Immunizations Immunization Administration Dates Next Due Influenza Vaccine, Quadrivalent, Adjuvanted 02/13,03/17/2020 Influenza, Quadrivalent, Preservative Free 07/10,03/22/2018 Moderna SARS-COV-2 12/10/2021,09/18/2020, 021 Pneumococcal Conjugate Pcv [...] Sign Reading Time Taken Comments Blood Pressure 128/80 10/17/2024 10:29 AM EDT Pulse 85 10/17/2024 10:29 AM EDT Temperature - - Respiratory Rate - - Oxygen Saturation 97% 10/17/2024 10:29 AM EDT Inhaled Oxygen Concentration - - Weight 72.6 kg (160 lb) 10/17/2024 10:29 AM EDT Height - - Body Mass Index - - Plan of Treatment Upcoming Encounters Date Type Department Care Team (Late st Contact Info) Description 10/17/2025 4:00 PM EDT Office Visit [facility] [address] [phone] Mike Montejo MD [address] [phone] Health Maintenance Due Date Last Done Comments Breast Cancer Screening 1955 Colorectal Cancer Screening: Annual FOBT 2003 Colorectal Cancer Screening: Colonoscopy 2003 Colorectal Cancer Screening: Sigmoidoscopy 2003 Influenza Vaccine (#1) 2025 4, 03/03/2021, 03/17/2020, Additional history exists Pneumococcal Vaccine: 50+ Years Completed 11/03/2022, 08/11/2019 Hepatitis B Vaccine Aged Out No longe r eligible based on patient's age to complete this topic Insurance [facility] Member Subscriber Plan / Payer (Ef fective 2022-Present) Name:Myrtle Fitchina Relation to Subscriber:Self Name:Myrtle Fitchina Payer ID:Not on file Type:Not on file Address: [address] [phone] Medicare Care Teams Lowerator Operator Relationship Specialty Start Date End Date Nubia Gay MD [address] [place] [address] [place] [phone] PCP - General Internal Medicine 04/19/24
--- OUTSIDE RECORDS SUMMARY | 2025-01-16 15:40 | XMS_ITS | Clinical Summary ---
Author Organization [employer] Address [address] [facility] 7t [place] [address] Care Team Providers Care Telecom Engineer Name Role Phone Nubia Gay MD Primary Care Provide r Allergies No known active allergies Medications fluticasone (Flonase Allergy Relief) 50 MCG/ACT nasal sprayIndication s:Allergic sinusitis Administer 1 spray into each nostril in the morning. Shake gently. Before first use, prime pump. After use, clean tip and replace cap. 16 g 12 06/27/19 23 Active albuterol 108 (90 Base) MCG/ACT inhalerIndicati ons:Influenza-l bradly symptoms INHALE 2 PUFFS BY MOUTH EVERY 4 HOURS NEEDED FOR WHEEZING OR SHORTNESS OF BREATH 18 g 1 12/30/19 23 Active Blood Glucose Monitoring Suppl (FreeStyle Lite) deviceIndicatio ns:Prediabetes TEST BLOOD SUGAR TWICE DAILY 1 each 04/08/20 23 Active glucose blood (FREESTYLE LITE) test strip TEST BLOOD SUGAR TWICE DAILY 100 each 11 04/08/20 23 Active TRUEplus Lancets 33G misc TEST BLOOD SUGAR TWICE DAILY 100 each 11 04/08/20 23 Active meclizine (Antivert) 12.5 MG tabletIndicatio ns:Hypertension , unspecified type TAKE 1 TABLET BY MOUTH THREE TIMES DAILY NEEDED FOR DIZZINESS OR FOR NAUSEA 30 tablet 09/16/19 24 Active acetaminophen (Tylenol) 500 MG tablet Take 2 tablets (1,000 mg) by mouth every 6 (six) hours if needed for moderate pain or fever for up to 25 doses. 50 tablet 10/27/19 24 Active albuterol (2.5 MG/3ML) 0.083% nebulizer solutionIndicat ions:Mild intermittent asthma with acute exacerbation inhale 3 milliliter by nebulization route 4 times every day prn 75 mL 3 10/27/19 24 Active amLODIPine (Norvasc) 2.5 MG tabletIndicatio ns:Hypertension , unspecified type Take 1 tablet (2.5 mg) by mouth in the morning. 90 tablet 1 01/07/20 24 Active atorvastatin (Lipitor) 20 MG tabletIndicatio ns:Primary hypertension Take 1 tablet (20 mg) by mouth Once per day. 30 tablet 11 01/07/20 24 Active losartan (Cozaar) 25 MG tabletIndicatio ns:Hypertension , unspecified type TAKE 1 TABLET BY MOUTH EVERY DAY 90 tablet 1 01/12/20 25 Active losartan (Cozaar) 25 MG tabletIndicatio ns:Hypertension , unspecified type TAKE 1 TABLET BY MOUTH EVERY DAY 90 tablet 1 06/27/19 25 2024 Discontinued Active Problems Problem Noted Date Diagnosed Date [...] PM EDT): Controlled continue with current interventions Encounters Date Type Department Care Team Description 01/11/2025 Refill [facility] [address] [place] [address] Nubia Gay MD Hypertension, unspecified type 01/04/2025 5:40 PM EDT Office Visit [facility] [address] [place] [address] Kelly Tiwari, RC Hordeolum externum of right upper eyelid (Primary Dx); Elevated blood pressure reading in office with diagnosis of hypertension 01/04/2025 Travel 01/03/2025 Orders Only [facility] [address] [place] [address] Nubia Gay MD Hypertension, unspecified type (Primary Dx); Prediabetes 01/03/2025 Telephone [facility] [address] [place] [address] Nubia Gay MD Lab Orders from Last 3 Months Immunizations Immunization Administration Dates Next Due Influenza Quadrivalent Adjuvanted [...] your housing situation today? I have roseline damir 01/07/[address] you li [...] Sign Reading Time Taken Comments Blood Pressure 127/66 01/04/2025 6:18 PM EDT Pulse 75 01/04/2025 5:54 PM EDT Temperature 36.8 C (98.3 F) 01/04/2025 5:54 PM EDT Respiratory Rate 16 01/04/2025 5:54 PM EDT Oxygen Saturation 99% 01/04/2025 5:54 PM EDT Inhaled Oxygen Concentration - - Weight 71.7 kg (158 lb) 01/04/2025 5:54 PM EDT Height 172.7 cm (5' 8 ) 01/07/2024 3:13 PM EDT Body Mass Index 24.02 01/07/2024 3:13 PM EDT Plan of Treatment Upcoming Encounters Date Type Department Care Team (Late st Contact Info) Description 01/30/2025 2:45 PM EDT Office Visit [facility] [address] [place] [address] Nubia Gay MD [address] [place], [place] [phone] Health Maintenance Due Date Last Done Comments [...] ( - season) 2024 12/10/2021, 09/18/2020, 08/21/2020 Diabetes: Hemoglobin A1C 07/06/2024 024, 11/17/2022, 12/10/2021 Depression Screening 01/06/2025 01/07/2024, 01/07/20 24 SDOH Screening 01/06/2025 01/07/2024 Mammogram 01/10/2025 01/11/2024, 0506/2022, 11/12/2022, Additional history exists Influenza Vaccine (#1) 2025 , 03/03/2021, 03/17/2020, Additional history exists Colorectal Cancer Screening 11/25/2025 FIT DNA/Cologuard 11/25/2025 11/25/2022 Tobacco Screening 01/04/2026 01/04/2025 Lipid Panel 07/06/2028 07/06/2023, 06/0 10/2022, 12/10/2021, [...] patient's age to complete this topic Meningococcal B Vaccine Aged Out No l onger eligible based on patient's age to complete [...] PM EDT Narrative 01/26/2024 9:39 PM EDT [facility] [address] 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 MM/MM tomosynthesis [...] signed by Alexa Buckley MD in OV> 01/26/242134 DD/ 1550 TD/TT: Button Buttonhole Marker: Procedure Note Donotuseinterpreter, Image - 01/26/2024 [facility] [address] 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 MM/MM tomosynthesis [...] signed by Alexa Buckley MD in OV> 01/26/242134 DD/ 1550 TD/TT: Button Buttonhole Marker: us Nubia Fuentes MD IMG BI PROCEDURES Jon latonia Result - Final * Hemoglobin A1c (07/06/2023 8:18 AM EST) Hemoglobin A1c 5.4 <6.0 % [facility] Comment:Hemoglobin A1C Refer ence Range Adults: 4.8 - 6.0 % Non diabetic: < 6.0 % Goal: < 7.0 %Additional Action Suggested: > 8.0 %Note: Hemoglobin A1c results are invalid for patients with abnormal amounts of HbF. Blood transfusions may impact the HbA1c concentration in the patient sample. Estimated Average Glucose 108 mg/dL [facility] Comment:eAG = Estimated ave rage glucose which is %A1C expressed asaverage glucose, using the formula of the I6E-NkxnkpsUgixukz Glucose study (ADAG), Diabetes Care, Vol.31,#8,Jan. 2007 Blood Venous blood specimen / Unknown 07/06/2023 8:18 AM EST 07/06/2023 11:09 AM EST us Nubia Fuentes MD LAB BLOOD ORDERABLES Final Result [facility] [address] [place] [phone] * Lipid Panel, Standard (07/06/2023 8:18 AM EST) Triglycerides 79 <150 mg/dL [facility] Comment:Desirable Triglyceri de: less than 150 mg/dLBorderline High Triglyceride 150-199 mg/dLHigh Triglyceride: 200-499 mg/dLVery High Triglyceride: greater than or equal to 5OO mg/dL Cholesterol 117 <200 mg/dL [facility] Comment:Desirable Cholestero l: less than 200 mg/dLBorderline High Cholesterol: 200-239 mg/dLHigh Cholesterol: greater than 239 mg/dL LDL Cholesterol Calculated 58 <100 mg/dL [facility] Comment:Desirable LDL: less than 100 mg/dLNear Optimal/Above Optimal LDL: 110- 129 mg/dLBorderline High LDL: 130-159 mg/dLHigh LDL: 160-189 mg/dLVery High LDL: greater than or equal to 190 mg/dL HDL Cholesterol 44 >40 mg/dL [facility] Comment:Desirable HDL: great er than 40 mg/dL Note: This HDL assay may give artificially low results in patients with liver disease. Blood Venous blood specimen / Unknown 07/06/2023 8:18 AM EST 07/06/2023 11:38 AM EST us Nubia Fuentes MD LAB BLOOD ORDERABLES Final Result [facility] [address] [place] [phone] from Last 3 Months or Most Recently Relevant to Health Maintenance Insurance [facility] , [address] [place] [address] Care Teams Telecom Engineer Relationship Specialty Start Date End Date Nubia Gay MD [address] [place] [phone] PCP - General Family Medicine 11/04/18
== END 2025-01-16 15:38 | disposition home or self-care (01) ==
LOC: HO.MAMMO 15:37
PROVIDERS: PCP Internal Medicine; Visit Provider Internal Medicine
DX: Z12.31 Encounter for screening mammogram for malignant neoplasm of breast (principal)
CPT/HCPCS: 77063; 77067

== ENCOUNTER → 2025-01-16 16:00 | Outpatient (BNV) | payer OTHER, SELFPAY | PROVIDERS: PCP Internal Medicine; Visit Provider Internal Medicine | DX: Z12.31 Encounter for screening mammogram for malignant neoplasm of breast (principal) | CPT/HCPCS: 77063; 77067 ==

== ENCOUNTER 2025-01-26 08:04 | Outpatient (REF) | payer OTHER, SELFPAY ==
[2025-01-26 11:38] LABS: Hematocrit 38.2 % (37.0-47.0); Hemoglobin 12.6 g/dl (12.0-16.0); Imm Gran Abs Auto 0.01 X10*3/uL (0.00-0.03); Imm Gran Pct Auto 0.2 % (0.0-0.4); Lymphocytes Absolute Auto 2.9 X10*3/uL (1.2-4.9); MANUAL DIFF FLAG SCAN; Mean Corpuscular HGB Conc 33.0 g/dl (31.0-35.0); Mean Corpuscular Hemoglobin 27.1 pg (27.0-33.0); Mean Corpuscular Volume 82.2 fL (80.0-98.0); NRBC Abs Auto 0.000 X10*3/uL (0.0-0.012); NRBC Pct Auto 0.0 /100WBC (0.0-0.2); Platelet Count 275 X10*3/uL (160-400); Red Blood Count 4.65 X10*6/uL (4.20-5.50); SCAN SMEAR FLAG 1; White Blood Count 4.4 X10*3/uL (4.8-10.8)
[2025-01-26 12:01] LABS: Alanine Aminotransferase 16 U/L (0-31); Albumin Level 4.3 g/dL (3.5-5.0); Alkaline Phosphatase 124 U/L (39-117); Anion Gap 12 (12-20); Aspartate Amino Transferase 27 U/L (5-31); Blood Urea Nitrogen 17 mg/dL (9-16); Calcium 9.8 mg/dL (8.4-10.2); Carbon Dioxide 25 mmol/L (22-29); Chloride 109 mmol/L (96-108); Cholesterol 122 mg/dL (<200); Estimated Glomerular Filt Rate 57; HDL Cholesterol 35 mg/dL (>40); Potassium 4.3 mmol/L (3.3-5.1); Sodium 142 mmol/L (135-145); Total Protein 8.2 g/dL (6.5-8.0); Triglycerides 96 mg/dL (<150)
[2025-01-26 12:07] LABS: Hemoglobin A1C 154.5600 umol/L; Total Hemoglobin (HGBA1C) 3919.2115 umol/L
[2025-01-26 12:12] LABS: HIV Num 1 0.06 S/CO (0.00-0.99); ~HepC Num1 0.12 S/CO (0.00-0.79); ~Hepatitis C Antibody Nonreactive (Nonreactive)
== END 2025-01-26 08:05 | disposition home or self-care (01) ==
LOC: HO.HHCL 08:04
PROVIDERS: PCP Internal Medicine; Visit Provider Internal Medicine
DX: I10 Essential (primary) hypertension (principal); R73.03 Prediabetes; Z11.59 Encounter for screening for other viral diseases; Z11.4 Encounter for screening for human immunodeficiency virus [HIV]
CPT/HCPCS: 36415; 80053; 80061; 82306; 83036; 84443; 85025; 86803; 87389

== ENCOUNTER 2025-02-27 14:17 | Outpatient (REF) | payer OTHER, SELFPAY ==
--- NOTE | ~2025-02-27 | MM_ITS ---
EXAMINATION: DXA BONE DENSITY AXIAL HISTORY: post menopausal TECHNIQUE: [employer] Dual energy absorptiometry (DEXA) of the lumbar spine, total left hip, and femoral neck was performed. COMPARISON: There are no prior studies for comparison. FINDINGS: The bone mineral density of the lumbar spine is 1.003 g/cm2, corresponding to a T-score of -1.5, and a Z-score of 0.0. This is indicative of osteopenia. The bone mineral density of the left total hip is 0.810 g/cm2, corresponding to a T-score of -1.6, and a Z-score of -0.2. This is indicative of osteopenia. The bone mineral density of the left femoral neck is 0.687 g/cm2, corresponding to a T-score of -2.5, and a Z-score of -0.9. This is indicative of osteoporosis. MM/XR DEXA axial skeleton IMPRESSION: Based on bone mineral density, and according to World Health Organization (WHO) criteria, the diagnosis is consistent with osteoporosis. Statistically, 68% of repeat scans fall within 1 SD (+/- 0.010 g/cm2 for AP spine L1-L4) and 1 SD (+/- 0.012 g/cm2 for femur total) [employer] is a trademark of the [employer], a World Health Organization (WHO) Collaborating Center. Electronically signed by: Candido Aviles MD 02/27/2025 02:48 PM EDT
--- OUTSIDE RECORDS SUMMARY | 2025-02-27 19:38 | XMS_ITS | Encounter Summary ---
Author Organization [employer] Address [address] [facility] 7t [place] [address] Care Team Providers Care Cashier Wrapper Name Role Phone Nubia Gay MD Primary Care Provide r Encounter Details Date Type Department Care Team ([facility] st Contact Info) Description 02/27/2025 Results Follow-Up [facility] [address] [place] [address] Nubia Gay MD [address] [place] [address] BD DEXA Axial Social History Tobacco Use Types Packs/Day Years Used Date Smoking Tobacco: Never Passive Smoke Exposure: Never Smokeless Tobacco: Never Depression Answer Date Recorded Patient Health Questionnaire-9 Score 1 01/30/2025 Patient Health Questionnaire-9 Score 1 01/30/2025 Last PHQ-9: Questionnaire Data Not on file 0 01/30/2025 Housing Stability Answer Date Recorded What is your housing situation today? I have roseline reich 01/23/[address] you li ve. Do you have problems with any of the following? None of the above 01/23/2025 Food Insecurity Answer Date Recorded Within the past 12 months, y ou worried that your food would run out before you got money to buy more: Never True 01/23/2025 Within the past 12 months,th e food you bought just didn't last and you didn't have enough money to get more: Never True 04/2025 Transportation Answer Date Recorded In the past 12 months, has l ack of transportation kept you from medical appts, meetings, work or from getting things needed for daily living? No 01/23/2025 Utilities Answer Date Recorded In the past 12 months, has t he electric, gas, oil or water company threatened to shut off services in your home? No 01/23/2025 Depression Answer Date Recorded Patient Health Questionnaire-2 Score 1 01/30/2025 Internet Access Answer Date Recorded Internet Access Q1 Yes 01/23/2025 Internet Access Q2 Not on file 01/23/2025 Comments Unknown Sex and Gender Information Value Date Recorded Sex Assigned at Female 04/14/2022 10:35 AM EDT Legal Sex Female 10:35 AM EDT Gender Identity Female 04/14/2022 10:35 AM EDT Sexual Orientation Straight 04/14/2022 10 :35 AM EDT documented as of this encounter Plan of Treatment Not on file documented as of this encounter Visit Diagnoses Not on filedocumented in this encounter Additional Health Concerns Assessment Noted Time PHQ-9 Depression Total Score: 1 01/31/20 25 2:46 PM EDT documented as of this encounter Care Teams Cashier Wrapper Relationship Specialty Start Date End Date Nubia Gay MD [address] [place] [address] PCP - General Family Medicine 11/04/18 documented as of this encounter
--- OUTSIDE RECORDS SUMMARY | 2025-02-27 19:38 | XMS_ITS | Encounter Summary ---
Author Organization [employer] Address [address] [facility] 7t [place] [address] Care Team Providers Care Gas Meter Checker Name Role Phone Nubia Gya MD Primary Care Provide r Encounter Details Date Type Department Care Team ([facility] st Contact Info) Description 02/27/2025 Orders Only [facility] [address] [place], [place] [phone] Nubia Gay MD [address] [place] [address] Osteoporosis without current pathological fracture, unspecified osteoporosis type (Primary Dx) Social History Tobacco Use Types Packs/Day Years [...] documented as of this encounter Visit Diagnoses Diagnosis Osteoporosis without current pathological fracture, unspecified osteoporosis type- Primary documented in this encounter Additional Health Concerns Assessment Noted Time PHQ-9 Depression Total Score: 1 01/31/20 25 2:46 PM EDT documented as of this encounter Care Teams Gas Meter Checker Relationship Specialty Start Date End Date Nubia Gay MD [address] [place] [phone] PCP - General Family Medicine 11/04/18 documented as of this encounter
--- OUTSIDE RECORDS SUMMARY | 2025-02-27 19:38 | XMS_ITS | Clinical Summary ---
Author Organization [facility]. Address [address] [facility] [address] [place] [address] Phone Care Team Providers Care Institution Librarian Name Role Phone Nubia Gay MD Primary [...] in the morning. 30 tablet 11 01/19/2024 Active Active Problems Problem Noted Date Diagnosed [...] Office Visit [facility] [address] [phone] Mike Montejo MD [address] [phone] Health Maintenance Due Date Last Done Comments Breast Cancer Screening 1955 Colorectal Cancer Screening: Annual FOBT 2003 Colorectal Cancer Screening: Colonoscopy 2003 Colorectal Cancer Screening: Sigmoidoscopy 2003 Influenza Vaccine (#1) 2025 , 03/03/2021, 03/17/2020, Additional history exists Pneumococcal Vaccine: 50+ Years Completed 11/03/2022, 08/11/2019 Hepatitis B Vaccine Aged Out No longe r eligible based on patient's age to complete this topic Insurance [facility] Medicare [place] [id number] Care Teams Institution Librarian Relationship Specialty Start Date End Date Nubia Gay MD [address] [place] [address] [place] [phone] PCP - General Internal Medicine 04/19/24
--- OUTSIDE RECORDS SUMMARY | 2025-02-27 19:38 | XMS_ITS | Encounter Summary ---
Author Organization [facility] Address [address] [facility] [address] [place] [address] Phone Care Team Providers Care Table Games Shift Manager Name Role Phone Nubia Gay MD Primary Care Provide r Encounter Details Date Type Department Care Team (Late st Contact Info) Description 01/12/2024 Office Communication [facility] [address] [facility] [address] [place] [address] Jonathan Mcgrath MD [address] [facility] [address] [place] [address] Social History Tobacco Use Types [...] Office Visit [facility] [address] [facility] [address] [place] [phone] Mike Montejo MD [address] [facility] [address] [place] [address] documented as of this encounter Visit Diagnoses Not on filedocumented in this encounter Care Teams Table Games Shift Manager Relationship Specialty Start Date End Date Nubia Gay MD [address] [place] [phone] PCP - General Internal Medicine 04/19/24 documented as of this encounter
--- OUTSIDE RECORDS SUMMARY | 2025-02-27 19:38 | XMS_ITS | Clinical Summary ---
Author Organization [employer] Address [address] [facility] [address] [place] [address] Care Team Providers Care Pct Name Role Phone Nubia Gay MD Primary Care Provide r Allergies No known active allergies Medications fluticasone (Flonase Allergy Relief) 50 MCG/ACT nasal sprayIndication s:Allergic sinusitis Administer 1 spray into each nostril in the morning. Shake gently. Before first use, prime pump. After use, clean tip and replace cap. 16 g 12 023 Active albuterol 108 (90 Base) MCG/ACT inhalerIndicati ons:Influenza-l bradly symptoms INHALE 2 PUFFS BY MOUTH EVERY 4 HOURS NEEDED FOR WHEEZING OR SHORTNESS OF BREATH 18 g 1 023 Active Blood Glucose Monitoring Suppl (FreeStyle Lite) deviceIndicatio ns:Prediabetes TEST BLOOD SUGAR TWICE DAILY 1 each 023 Active glucose blood (FREESTYLE LITE) test strip TEST BLOOD SUGAR TWICE DAILY 100 each 11 023 Active TRUEplus Lancets 33G misc TEST BLOOD SUGAR TWICE DAILY 100 each 11 023 Active acetaminophen (Tylenol) 500 MG tablet Take 2 tablets (1,000 mg) by mouth every 6 (six) hours if needed for moderate pain or fever for up to 25 doses. 50 tablet 024 Active albuterol (2.5 MG/3ML) 0.083% nebulizer solutionIndicat ions:Mild intermittent asthma with acute exacerbation inhale 3 milliliter by nebulization route 4 times every day prn 75 mL 3 Active losartan (Cozaar) 25 MG tabletIndicatio ns:Hypertension , unspecified type Take 1 tablet (25 mg) by mouth Once per day. 90 tablet Active amLODIPine (Norvasc) 2.5 MG tabletIndicatio ns:Hypertension , unspecified type Take 1 tablet (2.5 mg) by mouth in the morning. 90 tablet Active atorvastatin (Lipitor) 20 MG tabletIndicatio ns:Primary hypertension Take 1 tablet (20 mg) by mouth Once per day. 30 tablet 2025 Active meclizine (Antivert) 12.5 MG tabletIndicatio ns:Hypertension , unspecified type Take 1 tablet (12.5 mg) by mouth if needed in the morning, at noon, and at bedtime for dizziness. 30 tablet Active alendronate (Fosamax) 70 MG tabletIndicatio ns:Osteoporosis without current pathological fracture, unspecified osteoporosis type Take 1 tablet (70 mg) by mouth every 7 (seven) days. Take in the morning with a full glass of water, on an empty stomach, and do not take anything else by mouth or lie down for the next 30 min. 4 tablet 2025 Active meclizine (Antivert) 12.5 MG tabletIndicatio ns:Hypertension , unspecified type TAKE 1 TABLET BY MOUTH THREE TIMES DAILY NEEDED FOR DIZZINESS OR FOR NAUSEA 30 tablet 2024 Discontinued(R eorder (will not trigger notification to Pharmacy)) amLODIPine (Norvasc) 2.5 MG tabletIndicatio ns:Hypertension , unspecified type Take 1 tablet (2.5 mg) by mouth in the morning. 90 tablet 2024 Discontinued(R eorder (will not trigger notification to Pharmacy)) atorvastatin (Lipitor) 20 MG tabletIndicatio ns:Primary hypertension Take 1 tablet (20 mg) by mouth Once per day. 30 tablet 024 2024 Discontinued(R eorder (will not trigger notification to Pharmacy)) losartan (Cozaar) 25 MG tabletIndicatio ns:Hypertension , unspecified type TAKE 1 TABLET BY MOUTH EVERY DAY 90 tablet 1 025 2024 Discontinued(R eorder (will not trigger notification to Pharmacy)) Active Problems Problem Noted Date Diagnosed Date Encounter for preventive care 02/01/2025 Assessment & Plan (02/01/2025 11:56 AM EDT): See HPI Onychomycosis 01/30/2025 Assessment & Plan (01/30/2025 4:06 PM EDT): Podiatry referral done today Asymptomatic postmenopausal state 01/30/2025 Colon cancer screening 07/10/2023 Prediabetes 04/06/2023 Assessment [...] chronic kidney disease 04/06/2023 Assessment & Plan (01/30/2025 4:06 PM EDT): Continue to follow with nephrology Assessment & Plan (04/06/2023 3:23 PM EDT): [...] 10d. Primary hypertension 11/03/2022 Assessment & Plan (01/30/2025 4:05 PM EDT): I advised: - Aerobic exercise to reduce BP. Initial [...] consulting health care provider Assessment & Plan (01/07/2024 4:39 PM EDT): [...] Mild intermittent asthma 06/27/2022 Assessment & Plan (01/30/2025 4:06 PM EDT): Stable continue with same interventions Assessment & Plan (04/06/2023 3:19 PM EDT): Refill for albuterol done Assessment & Plan (12/29/2022 12:05 PM EDT): Improving, Use albuterol with spacer q4h x 2d then prn. Re consult prn if sxs worsen Assessment & Plan (11/03/2022 4:39 PM EDT): Controlled continue with current interventions Encounters Date Type Department Care Team Description 02/27/2025 Orders Only [address] [address] Nubia Gay MD Osteoporosis without current pathological fracture, unspecified osteoporosis type (Primary Dx) 02/27/2025 Results Follow-Up [address] [address] Nubia Gay MD BD DEXA Axial 01/30/2025 2:45 PM EDT Office Visit [address] [address] Nubia Gay MD Onychomycosis (Primary Dx); Encounter for preventive care; Primary hypertension; Stage 2 chronic kidney disease; Mild intermittent asthma without complication; Asymptomatic postmenopausal state; Hypertension, unspecified type 01/30/2025 Travel 01/23/2025 Patient Outreach [facility] [address] [place], [place] [phone] Nubia Gay MD Pre-visit Planning (SDOH negative. Tobacco screening negative. ) 01/11/[address] [address] Nubia Gay MD Hypertension, unspecified type 01/04/2025 5:40 PM EDT Office Visit [facility] [address] [place] [phone] Kelly Tiwari NP Hordeolum externum of right upper eyelid (Primary Dx); Elevated blood pressure reading in office with diagnosis of hypertension 01/04/2025 Travel 01/03/2025 Orders Only [facility] [address] [place] [address] Nubia Gay MD Hypertension, unspecified type (Primary Dx); Prediabetes 01/03/2025 Telephone [facility] [address] [place] [address] Nubia Gay MD Lab Orders from Last [...] Sign Reading Time Taken Comments Blood Pressure 140/82 01/30/2025 2:46 PM EDT Pulse 87 01/30/2025 2:46 PM EDT Temperature 36.1 C (97 F) 01/30/2025 2:46 PM EDT Respiratory Rate 16 01/30/2025 2:46 PM EDT Oxygen Saturation 96% 01/30/2025 2:46 PM EDT Inhaled Oxygen Concentration - - Weight 72.3 kg (159 lb 6.4 oz) 01/30/2025 2:46 P M EDT Height 175.3 cm (5' 9 ) 01/30/2025 2:46 PM EDT Body Mass Index 23.54 01/30/2025 2:46 PM EDT Plan of Treatment Health Maintenance Due Date Last Done Comments CT Colonography 1955 Colonoscopy 1955 FIT 1955 Sigmoidoscopy 1955 DTaP/Tdap/Td Vaccines (1 - Tdap) 1973 Zoster Vaccines (1 of 2) 2004 RSV Patients and Patients Aged 60 years or older (1 - Risk 60-74 years 1-dose series) 2014 FOBT 11/26/2023 11/25/2022 COVID-19 Vaccine ( - season) 2025 12/10/2021, 09/18/2020, 08/21/2020 Influenza Vaccine (#1) 2025 , 03/03/2021, 03/17/2020, Additional history exists Colorectal Cancer Screening 11/25/2025 FIT DNA/Cologuard 11/25/2025 11/25/2022 Mammogram 01/16/2026 01/16/2025, 07/2 02/2024, 11/12/2022, Additional history exists SDOH Screening 01/23/2026 01/23/2025 Diabetes: Hemoglobin A1C 01/26/2026 025, 07/06/2023, 11/17/2022, Additional history exists Alcohol/Substance Use Screening 01/30/2026 01/30/2025 Depression Screening 01/30/2026 01/30/2025, 01/31/20 25 Tobacco Screening 01/30/2026 01/30/2025 Lipid Panel 01/26/2030 01/26/2025, 06/16, 11/17/2022, Additional history exists Pneumococcal Vaccine: 50+ Years Completed 11/03/2022, 08/11/2019 Hepatitis C Screening Completed 01/26/2025 HIB Vaccines Aged Out No longer eligi [...] Procedure Name Priority Date/Time Associated Diagnosis Comments BD DEXA AXIAL Routine 02/27/2025 2:41 PM EDT Asymptomatic postmenopausal state SLIDE REVIEW Routine 01/26/2025 8:06 AM EDT Hypertension, unspecified type TSH W/REFLEX TO FT4 Routine 01/26/2025 8 :06 AM EDT Hypertension, unspecified type Prediabetes VITAMIN D,25-OH,TOTAL,IA Routine 01/26/2025 8:06 AM EDT Hypertension, unspecified type Prediabetes LIPID PANEL, STANDARD Routine 01/26/2025 8:06 AM EDT Hypertension, unspecified type Prediabetes HEPATITIS C AB W/REFL TO HCV RNA, QN, PCR Routine 01/26/2025 8:06 AM EDT Hypertension, unspecified type Prediabetes HIV 1/2 ANTIGEN/ANTIBODY, FOURTH GENERATION W/RFL Routine 01/26/2025 8:06 AM EDT Hypertension, unspecified type Prediabetes HEMOGLOBIN A1C Routine 01/26/2025 8:06 AM EDT Hypertension, unspecified type Prediabetes COMPREHENSIVE METABOLIC PANEL Routine 01/26/2025 8:06 AM EDT Hypertension, unspecified type Prediabetes CBC WITH AUTO DIFFERENTIAL Routine 01/26/2025 8:06 AM EDT Hypertension, unspecified type Prediabetes BI MAMMOGRAM SCREENING TOMOSYNTHESIS BILATERAL Routine 01/16/2025 3:45 PM EDT from Last 3 Months Results * BD DEXA Axial (02/27/2025 2:41 PM EDT) Anatomical Region Laterality Modality Body Radiographic Francisca ging 02/27/2025 2:41 PM EDT Narrative 02/27/2025 2:51 PM EDT [facility] [address] [place] [address] Mammography Report Signed Patient: Sonali Mccann MR#: [id number] : 1955 Acct:[id number] Age/Sex: 69 / F ADM Date: 02/27/25 Loc: HO.MAMMO Attending Dr: Nubia Fuentes MD Ordering Physician: Nubia Gay MD Results: Date of Service: 02/27/25 Follow Up: Procedure(s): XR DEXA axial skeleton Accession Number(s): [id number] cc: Nubia Gay MD Reason For Exam: postmenopauseal EXAMINATION: DXA BONE DENSITY AXIAL HISTORY: post menopausal TECHNIQUE: [employer] Dual energy absorptiometry (DEXA) of the lumbar spine, total left hip, and femoral neck was performed. COMPARISON: There are no prior studies for comparison. FINDINGS: The bone mineral density of the lumbar spine is 1.003 g/cm2, corresponding to a T-score of -1.5, and a Z-score of 0.0. This is indicative of osteopenia. The bone mineral density of the left total hip is 0.810 g/cm2, corresponding to a T-score of -1.6, and a Z-score of -0.2. This is indicative of osteopenia. The bone mineral density of the left femoral neck is 0.687 g/cm2, corresponding to a T-score of -2.5, and a Z-score of -0.9. This is indicative of osteoporosis. MM/XR DEXA axial skeleton IMPRESSION: Based on bone mineral density, and according to World Health Organization (WHO) criteria, the diagnosis is consistent with osteoporosis. Statistically, 68% of repeat scans fall within 1 SD (+/- 0.010 g/cm2 for AP spine L1-L4) and 1 SD (+/- 0.012 g/cm2 for femur total) FRAX is a trademark of the [employer] for Metabolic Bone Disease, a World Health Organization (WHO) Collaborating Center. Electronically signed by: Candido Aviles MD 02/27/2025 02:48 PM EDT Dictated By: Candido Aviles MD Signed By: <Electronically signed by Candido Aviles MD in OV> 02/27/25 1448 DD/ 1441 TD/TT: 02/27/25 144 Wireless Consultant: Procedure Note Donotuseinterpreter, Image - 02/27/2025 [facility] [address] [place], [place] [address] Mammography Report Signed Patient: Sonali Mccann#: [id number] : 4Acct:[id number] Age/Sex: 69 / FADM Date: 02/27/25 Loc: DONNIE Attending Dr: Nubia Fuentes MD Ordering Physician: Nubia Gay MDResults: Date of Service: 02/27/25Follow Up: Procedure(s): XR DEXA axial skeleton Accession Number(s): [id number] cc: Nubia Gay MD Reason For Exam: postmenopauseal EXAMINATION: DXA BONE DENSITY AXIAL HISTORY: post menopausal TECHNIQUE: [employer] Dual energy absorptiometry (DEXA) of the lumbar spine, total left hip, and femoral neck was performed. COMPARISON: There are no prior studies for comparison. FINDINGS: The bone mineral density of the lumbar spine is 1.003 g/cm2, corresponding to a T-score of -1.5, and a Z-score of 0.0. This is indicative of osteopenia. The bone mineral density of the left total hip is 0.810 g/cm2, corresponding to a T-score of -1.6, and a Z-score of -0.2. This is indicative of osteopenia. The bone mineral density of the left femoral neck is 0.687 g/cm2, corresponding to a T-score of -2.5, and a Z-score of -0.9. This is indicative of osteoporosis. MM/XR DEXA axial skeleton IMPRESSION: Based on bone mineral density, and according to World Health Organization (WHO) criteria, the diagnosis is consistent with osteoporosis. Statistically, 68% of repeat scans fall within 1 SD (+/- 0.010 g/cm2 for AP spine L1-L4) and 1 SD (+/- 0.012 g/cm2 for femur total) FRAX is a trademark of the [employer] for Metabolic Bone Disease, a World Health Organization (WHO) Collaborating Center. Electronically signed by: Candido Aviles MD 02/27/2025 02:48 PM EDT Dictated By: Candido Aviles MD Signed By: <Electronically signed by Candido Aviles MD in OV> 02/27/25 1448 DD/ 1441 TD/TT: 02/27/25 144 Wireless Consultant: Nubia Fuentes MD IMG DXA PROCEDURES Fi nal Result * Slide Review (01/26/2025 8:06 AM EDT) Slide Review VERIFIED [facility] 01/26/2025 8:06 AM EDT 01/26/2025 11:20 AM EDT Nubia Fuentes MD LAB BLOOD ORDERABLES Final Result [facility] [address] [place] [phone] * Vitamin D, 25-Hydroxy, Total, Immunoassay (01/26/2025 8:06 AM EDT) Vitamin D 25-OH Total 48.4 >30 ng/mL [facility] Comment: Health Based Reference Values*< 20 ng/mL Oreioxbye97-11 ng/mL Insufficient> 30 ng/mL Sufficient*Nalini VELAZQUEZ. N Engl J Med. 2007;357:266-280There is no well-established upper level of normal vitamin Dlevels. Some laboratories use 50 ng/mL as an upper limit ofnormal. However, toxicity is patient-dependent and may occurat any level. Careful correlation with the patient'spresentation is necessary and, if there is concern forvitamin D toxicity, treatment should be consideredirrespective of the serum level.Care must be taken in interpreting Vitamin D results fromdifferent laboratories and methodologies. Published datademonstrated that results from patients undergoinghemodialysis may show a negative bias when tested withvarious automated 25-OH vitamin D assays when compared toLC-MS/MS.When testing samples from patients whose predominant form ofVitamin D is Vitamin D2, such as patients receiving VitaminD2 supplementation, results that are subtherapeutic shouldbe confirmed with another method such as LC-MS/MS. Blood Venous blood specimen / Unknown 01/26/2025 8:06 AM EDT 01/26/2025 11:20 AM EDT us Nubia Fuentes MD LAB BLOOD ORDERABLES Final Result Performing Organization Address [facility] Co de Phone Number [facility] [address] [place] [phone] * TSH with Reflex to Free T4 (01/26/2025 8:06 AM EDT) TSH reflex Free T4 1.51 0.32 - 4.0 uIU/mL [facility] Blood Venous blood specimen / Unknown 01/26/2025 8:06 AM EDT 01/26/2025 11:20 AM EDT us Nubia Fuentes MD LAB BLOOD ORDERABLES Final Result Performing Organization Address [facility] Co de Phone Number [facility] [address] [place] [phone] * (ABNORMAL) CBC auto differential (01/26/2025 8:06 AM EDT) White Blood Count 4.4(L) 4.8 - 10.8 X10*3/uL [facility] Red Blood Count 4.65 4.20 - 5.50 X10*6/uL [facility] Hemoglobin 12.6 12.0 - 16.0 g/dl [facility] Hematocrit 38.2 37.0 - 47.0 % [facility] Mean Corpuscular Volume 82.2 80.0 - 98.0 fL [facility] Mean Corpuscular Hemoglobin 27.1 27.0 - 33.0 pg [facility] Mean Corpuscular HGB Conc 33.0 31.0 - 35.0 g/dl [facility] Red Cell Distribution Width 13.1 11.0 - 16.0 % [facility] Platelet Count 275 160 - 400 X10*3/uL [facility] Mean Platelet Volume 9.2(L) 9.4 - 12.3 fL [facility] Neutrophils Percent Auto 20.9(L) 45 - 73 % [facility] Imm Gran Pct Auto 0.2 0.0 - 0.4 % [facility] Lymphocytes Percent Auto 64.9(H) 20 - 40 % [facility] Monocytes Percent Auto 10.4 2 - 11 % [facility] Eosinophils Percent Auto 2.7 0 - 4 % [facility] Basophils Percent Auto 0.9 0 - 2 % [facility] NRBC Pct Auto 0.0 0.0 - 0.2 /100WBC [facility] Neutrophils Absolute Auto 0.9(L) 2.0 - 8.3 x10*3/uL [facility] Imm Gran Abs Auto 0.01 0.00 - 0.03 X10*3/uL [facility] Lymphocytes Absolute Auto 2.9 1.2 - 4.9 X10*3/uL [facility] Monocytes Absolute Auto 0.5 0.1 - 1.2 X10*3/uL [facility] Eosinophils Absolute Auto 0.1 0.0 - 0.4 X10*3/uL [facility] Basophils Absolute Auto 0.0 0.0 - 0.2 X10*3/uL [facility] NRBC Abs Auto 0.000 0.0 - 0.012 X10*3/uL [facility] Blood Venous blood specimen / Unknown 01/26/2025 8:06 AM EDT 01/26/2025 11:20 AM EDT us Nubia Fuentes MD LAB BLOOD ORDERABLES Edited Result - Final [facility] [address] [place] [phone] * Hepatitis C Antibody with Reflex to HCV, RNA, Quantitative, Real-Time PCR (01/26/2025 8:06 AM EDT) Hepatitis C Antibody Nonreactive Nonreactive [facility] Comment:Antibodies to HCV no t detected; does not exclude early acuteHCV infection. Blood Venous blood specimen / Unknown 01/26/2025 8:06 AM EDT 01/26/2025 11:20 AM EDT Nubia Fuentes MD LAB BLOOD ORDERABLES Final Result Performing Organization Address City[facility]/ZIP Co de Phone Number [facility] [address] [place] [phone] * HIV-1/2 Antigen and Antibodies, Fourth Generation, with Reflexes (01/26/2025 8:06 AM EDT) [facility] HIV AB/AG Nonreactive Nonreactive [facility] Comment:HIV-1 p24 Ag and/or HIV-1/HIV-2 Ab not detected.A test result that is nonreactive does not exclude thepossibility of exposure to or infection with HIV-1 and/orHIV-2. Nonreactive results in this assay for individualswith prior exposure to HIV-1 and/or HIV-2 may be due toantigen and antibody levels that are below the limit ofdetection of this assay.The [employer] HIV Ag/Ab Combo assay result andsupplemental assay results should be interpreted inconjunction with the patient's clinical presentation,history and other laboratory results. If the results areinconsistent with clinical evidence, additional testing issuggested to confirm the result. Blood Venous blood specimen / Unknown 01/26/2025 8:06 AM EDT 01/26/2025 11:20 AM EDT us Nubia Fuentes MD LAB BLOOD ORDERABLES Final Result Performing Organization Address City/[facility]/ZIP Co de Phone Number [facility] [address] [place] [phone] [phone] * Hemoglobin A1c (01/26/2025 8:06 AM EDT) [facility] Hemoglobin A1c 5.8 <6.0 % [facility] Comment:Hemoglobin A1C Refer ence Range Adults: 4.8 - 6.0 % Non diabetic: < 6.0 % Goal: < 7.0 %Additional Action Suggested: > 8.0 %Note: Hemoglobin A1c results are invalid for patients with abnormal amounts of HbF. Blood transfusions may impact the HbA1c concentration in the patient sample. Estimated Average Glucose 120 mg/dL [facility] Comment:eAG = Estimated ave rage glucose which is %A1C expressed asaverage glucose, using the formula of the P8M-RvlwcllPzeggrs Glucose study (ADAG), Diabetes Care, Vol.31,#8,2007 Blood Venous blood specimen / Unknown 01/26/2025 8:06 AM EDT 01/26/2025 11:20 AM EDT us Nubia Fuentes MD LAB BLOOD ORDERABLES Final Result [facility] [address] [place] [phone] * (ABNORMAL) Lipid Panel, Standard (01/26/2025 8:06 AM EDT) Triglycerides 96 <150 mg/dL [facility] Comment:Desirable Triglyceri de: less than 150 mg/dLBorderline High Triglyceride 150-199 mg/dLHigh Triglyceride: 200-499 mg/dLVery High Triglyceride: greater than or equal to 5OO mg/dL Cholesterol 122 <200 mg/dL [facility] Comment:Desirable Cholestero l: less than 200 mg/dLBorderline High Cholesterol: 200-239 mg/dLHigh Cholesterol: greater than 239 mg/dL LDL Cholesterol Calculated 68 <100 mg/dL [facility] Comment:Desirable LDL: less than 100 mg/dLNear Optimal/Above Optimal LDL: 110- 129 mg/dLBorderline High LDL: 130-159 mg/dLHigh LDL: 160-189 mg/dLVery High LDL: greater than or equal to 190 mg/dL HDL Cholesterol 35(L) >40 mg/dL [facility] Comment:Desirable HDL: great er than 40 mg/dL Note: This HDL assay may give artificially low results in patients with liver disease. Blood Venous blood specimen / Unknown 01/26/2025 8:06 AM EDT 01/26/2025 11:20 AM EDT us Nubia Fuentes MD LAB BLOOD ORDERABLES Final Result [facility] [address] [place] [phone] * (ABNORMAL) Comprehensive Metabolic Panel (01/26/2025 8:06 AM EDT) Sodium 142 135 - 145 mmol/L [facility] Potassium 4.3 3.3 - 5.1 mmol/L [facility] Chloride 109(H) 96 - 108 mmol/L [facility] Carbon Dioxide 25 22 - 29 mmol/L [facility] Anion Gap 12 12 - 20 [facility] Urea Nitrogen (BUN) 17(H) 9 - 16 mg/dL [facility] Creatinine, Serum 0.96 0.5 - 1.4 mg/dL [facility] Estimated Glomerular Filt Rate 57 [facility] Comment:Chronic Kidney Disea se: Estimated GFR < 60 mL/min/1.47n5Ljzgfk Kidney Disease: Estimated GFR < 15 mL/min/1.73m2 Glucose 92 60 - 115 mg/dL [facility] Calcium 9.8 8.4 - 10.2 mg/dL [facility] Bilirubin, Total 0.4 0.0 - 1.0 mg/dL [facility] Aspartate Amino Transferase 27 5 - 31 U/L [facility] Alanine Aminotransferase 16 0 - 31 U/L [facility] Total Protein 8.2(H) 6.5 - 8.0 g/dL [facility] Albumin Level 4.3 3.5 - 5.0 g/dL [facility] Alkaline Phosphatase 124(H) 39 - 117 U/L [facility] Blood Venous blood specimen / Unknown 01/26/2025 8:06 AM EDT 01/26/2025 11:20 AM EDT us Nubia Fuentes MD LAB BLOOD ORDERABLES Final Result [facility] [address] [place] [address] [phone] * BI Mammogram Screening Tomosynthesis Bilateral (01/16/2025 3:45 PM EDT) Anatomical Region Laterality Modality Breast Bilateral Mammography 01/16/2025 3:45 PM EDT Narrative 01/26/2025 2:48 PM EDT [facility] [address] [place] [address] Mammography Report Signed Patient: Sonali Mccann MR#: [id number] : 1955 Acct:[id number] Age/Sex: 69 / F ADM Date: 01/16/25 Loc: HO.MAMMO Attending Dr: Nubia Fuentes MD Ordering Physician: Nubia Gay MD Results: 2Benign Findings Date of Service: 01/16/25 Follow Up: 1 Year From [facility] Mammogram Procedure(s): MM tomosynthesis screening BI Accession Number(s): [id number] cc: Nubia Gay MD EXAMINATION: MM SCREENING DIGITAL BREAST TOMOSYNTHESIS, BILATERAL CLINICAL INFORMATION: Screening. Asymptomatic. COMPARISON: Mammography: Comparison is made with available priors TECHNIQUE: Digital breast mammography with tomosynthesis is performed in both the craniocaudal and mediolateral oblique views along with computer-aided detection (CAD). FINDINGS: There are scattered areas of fibroglandular density (ACR BI-RADS breast composition Category b). Bilateral circumscribed oval masses which wax and wane consistent with benign fibrocystic changes. There are no significant masses, abnormal calcifications, or other abnormalities. MM/MM tomosynthesis screening BI IMPRESSION: No mammographic evidence of malignancy. ASSESSMENT: BI-RADS BI-RADS 2 - Benign Findings RECOMMENDATION: Routine annual mammography screening. 1 year F/U This examination should not preclude the clinical evaluation of a suspicious palpable abnormality. This patient's information was entered into a reminder system with a target due date for their next mammogram. Electronically signed by: Terese Butcher DO 01/26/2025 02:45 PM EDT Dictated By: Terese Butcher DO Signed By: <Electronically signed by Terese Butcher DO in OV> 01/26/25 1445 DD/ 1545 TD/TT: 01/16/25 1600 Wireless Consultant: Procedure Note Donotuseinterpreter, Image - [facility] [address] [place] [address] Mammography Report Signed Patient: Sonali MccannMR#: [id number] : 4Acct:[id number] Age/Sex: 69 / FADM Date: 01/16/25 Loc: HO.MAMMO Attending Dr: Nubia Fuentes MD Ordering Physician: Nubia Gay MDResults: 2Benign Findings Date of Service: 01/16/25Follow Up: 1 Year From Orig inal Mammogram Procedure(s): MM tomosynthesis screening BI Accession Number(s): [id number] cc: Nubia Gay MD EXAMINATION: MM SCREENING DIGITAL BREAST TOMOSYNTHESIS, BILATERAL CLINICAL INFORMATION: Screening. Asymptomatic. COMPARISON: Mammography: Comparison is made with available priors TECHNIQUE: Digital breast mammography with tomosynthesis is performed in both the craniocaudal and mediolateral oblique views along with computer-aided detection (CAD). FINDINGS: There are scattered areas of fibroglandular density (ACR BI-RADS breast composition Category b). Bilateral circumscribed oval masses which wax and wane consistent with benign fibrocystic changes. There are no significant masses, abnormal calcifications, or other abnormalities. MM/MM tomosynthesis screening BI IMPRESSION: No mammographic evidence of malignancy. ASSESSMENT: BI-RADS BI-RADS 2 - Benign Findings RECOMMENDATION: Routine annual mammography screening. 1 year F/U This examination should not preclude the clinical evaluation of a suspicious palpable abnormality. This patient's information was entered into a reminder system with a target due date for their next mammogram. Electronically signed by: Terese Butcher DO 01/26/2025 02:45 PM EDT Dictated By: Terese Butcher DO Signed By: <Electronically signed by Terese Butcher DO in OV> 01/26/25 1445 DD/ 1545 TD/TT: 01/16/25 1600 Wireless Consultant: Nubia Fuentes MD IMG BI PROCEDURES Fin al Result from Last 3 Months Insurance [facility] Care Teams Pct Relationship Specialty Start Date End Date Nubia Gay MD [address] [place] [id number] PCP - General Family Medicine 11/04/18
== END 2025-02-27 14:18 | disposition home or self-care (01) ==
LOC: HO.MAMMO 14:17
PROVIDERS: PCP Internal Medicine; Visit Provider Internal Medicine
DX: Z13.820 Encounter for screening for osteoporosis (principal); Z78.0 Asymptomatic menopausal state
CPT/HCPCS: 77080

== ENCOUNTER → 2025-02-27 14:30 | Outpatient (BNV) | payer OTHER, SELFPAY | PROVIDERS: PCP Internal Medicine; Visit Provider Radiology Diagnostic Radiology | DX: E28.39 Other primary ovarian failure (principal) | CPT/HCPCS: 77080 ==